=== PATIENT | female | born 1985 | race Caucasian/White ===

== ENCOUNTER → 2019-11-10 11:43 | Outpatient (CLI) | payer OTHER, SELFPAY ==
[2019-11-10 12:37] LABS: Add Manual Diff / Slide Review NO; Basophils Absolute Auto 0 /uL (0-100); Basophils Percent Auto 0.5 % (0-2); Eosinophils Absolute Auto 0 /uL (0-450); Eosinophils Percent Auto 0.3 % (2-4); Hematocrit 38.4 % (36-46); Hemoglobin 13.3 g/dL (12.0-16.0); Lymphocytes Absolute Auto 2800 /uL (1100-4500); Lymphocytes Percent Auto 36.2 % (25-40); Mean Corpuscular HGB Conc 34.6 % (30-36); Mean Corpuscular Hemoglobin 31.1 PG (26-34); Monocytes Absolute Auto 500 /uL (0-900); Monocytes Percent Auto 6.6 % (3-14); Neutrophils Absolute Auto 4400 /uL (1500-7000); Neutrophils Percent Auto 56.4 % (50-75); Platelet Count 313 X10^3/uL (150-400); Red Blood Cell Count 4.27 X10^6/uL (4.0-5.2); Red Cell Distribution Width 12.5 % (11.6-14.8); White Blood Cell Count 7.7 X10^3/uL (4.5-11.0)
[2019-11-10 13:30] LABS: Alanine Aminotransferase 18 IU/L (<35); Albumin 4.7 g/dL (3.5-5.0); Albumin Globulin Ratio 1.6 (1.0-2.8); Alkaline Phosphatase 41 U/L (38-126); Aspartate Aminotransferase 27 IU/L (14-36); BUN Creatinine Ratio 14.5 (6-22); Bilirubin Total 0.6 mg/dL (0.2-1.3); Blood Urea Nitrogen 12 mg/dL (7-17); Carbon Dioxide 25 mmol/L (22-32); Chloride 105 mmol/L (98-107); Estimated Glomerular Filt Rate > 60.0 mL/min (>60); Glucose 92 mg/dL (70-100); HEMOLYSIS < 15 (0-50); Potassium 4.2 mmol/L (3.4-5.1); Sodium 138 mmol/L (137-145); Total Protein 7.7 g/dL (6.3-8.2)
[2019-11-10 13:54] LABS: TSH w/ Reflex to FT4 1.62 uIU/mL (0.47-4.68)
== END ==
DX: R53.83 Other fatigue (principal)
CPT/HCPCS: 36415; 80053; 84443; 85025

== ENCOUNTER → 2021-03-28 12:07 | Outpatient (CLI) | payer OTHER, SELFPAY ==
[2021-03-28 12:41] LABS: RBC Urine None Seen (0-5/HPF)
[2021-03-28 12:56] LABS: Appearance Urine UA CLEAR; Bilirubin Urine UA NEGATIVE (NEGATIVE); Color Urine UA YELLOW; Glucose Urine UA NEGATIVE (Negative); Ketones Urine UA NEGATIVE (NEGATIVE); Leukocyte Esterase Urine UA 1+ (NEGATIVE); Nitrite Urine UA NEGATIVE (Negative); Occult Blood Urine UA NEGATIVE (Negative); Protein Urine UA NEGATIVE (Negative); Urobilinogen Urine UA 0.2 E.U./dL (0.2)
[2021-03-28 13:11] LABS: Bacteria Urine Occasional (0-1); Culture Indicated Urine Specimen Cultured; Squamous Epithelial Cell Urine 1-5 /HPF (0-5/HPF); WBC Urine 0-1/HPF (0-5/HPF)
== END ==
PROVIDERS: Visit Provider Physician Assistant
DX: R30.9 Painful micturition, unspecified (principal)
CPT/HCPCS: 81001; 87086

== ENCOUNTER → 2021-05-16 15:45 | Outpatient (CLI) | payer OTHER, SELFPAY ==
[2021-05-16 16:12] LABS: Add Manual Diff / Slide Review NO; Basophils Absolute Auto 0 /uL (0-100); Basophils Percent Auto 0.4 % (0-2); Eosinophils Absolute Auto 0 /uL (0-450); Eosinophils Percent Auto 0.3 % (2-4); Hematocrit 37.1 % (36-46); Hemoglobin 13.1 g/dL (12.0-16.0); Lymphocytes Absolute Auto 1500 /uL (1100-4500); Lymphocytes Percent Auto 21.4 % (25-40); Mean Corpuscular HGB Conc 35.4 % (30-36); Mean Corpuscular Hemoglobin 31.7 PG (26-34); Mean Corpuscular Volume 89.3 fL (80-100); Monocytes Absolute Auto 400 /uL (0-900); Monocytes Percent Auto 6.1 % (3-14); Neutrophils Absolute Auto 5100 /uL (1500-7000); Neutrophils Percent Auto 71.8 % (50-75); Platelet Count 261 X10^3/uL (150-400); Red Blood Cell Count 4.15 X10^6/uL (4.0-5.2); Red Cell Distribution Width 12.7 % (11.6-14.8); White Blood Cell Count 7.1 X10^3/uL (4.5-11.0)
[2021-05-16 16:17] LABS: Appearance Urine UA CLEAR; Bilirubin Urine UA NEGATIVE (NEGATIVE); Color Urine UA YELLOW; Glucose Urine UA NEGATIVE (Negative); Ketones Urine UA NEGATIVE (NEGATIVE); Leukocyte Esterase Urine UA NEGATIVE (NEGATIVE); Nitrite Urine UA NEGATIVE (Negative); Occult Blood Urine UA NEGATIVE (Negative); Protein Urine UA NEGATIVE (Negative); Specific Gravity Urine UA 1.015 (1.000-1.035); Urobilinogen Urine UA 0.2 E.U./dL (0.2)
[2021-05-16 16:22] LABS: pH Urine UA 6.5 (4.5-8.0)
[2021-05-16 16:40] LABS: Alanine Aminotransferase 34 IU/L (<35); Albumin 4.5 g/dL (3.5-5.0); Albumin Globulin Ratio 1.7 (1.0-2.8); Alkaline Phosphatase 50 U/L (38-126); Aspartate Aminotransferase 37 IU/L (14-36); BUN Creatinine Ratio 19.4 (6-22); Bilirubin Total 0.4 mg/dL (0.2-1.3); Blood Urea Nitrogen 19 mg/dL (7-17); Calcium 9.5 mg/dL (8.4-10.2); Carbon Dioxide 31 mmol/L (22-32); Chloride 103 mmol/L (98-107); Estimated Glomerular Filt Rate > 60.0 mL/min (>60); Globulin 2.6 g/dL (1.7-4.1); Glucose 100 mg/dL (70-100); HEMOLYSIS < 15 (0-50); Sodium 139 mmol/L (137-145); Total Protein 7.1 g/dL (6.3-8.2)
== END ==
PROVIDERS: PCP Registered Nurse; Referring Provider Registered Nurse; Visit Provider Registered Nurse
DX: R35.0 Frequency of micturition (principal)
CPT/HCPCS: 36415; 80053; 81003; 85025

== ENCOUNTER → 2021-06-19 09:11 | Outpatient (CLI) | payer OTHER, SELFPAY ==
--- NOTE | 2021-06-19 09:11 | DI.US.S_ITS ---
PROCEDURE: US PELVIC COMPLETE INDICATIONS: PELVIC PAIN. EVALUATE FOR PELVIC VARICOSITIES. TECHNIQUE: Real-time scanning was performed of the pelvic organs, with image documentation. Additional endovaginal scanning was necessary due to incomplete visualization of the adnexal and endometrial structures by transabdominal scanning. COMPARISON: None. FINDINGS: Uterus: Uterus is normal in size at 7.2 x 4.2 x 3.3 cm. The endometrium measures 5.7 mm in combined thickness. Ovaries: The right ovary measures 4.2 x 2.7 x 2 cm. The left ovary measures 3.8 x 2.5 x 1.6 cm. Other: No pathologic free abdominal or pelvic fluid. The right adnexal veins measures up to 5.7 mm with Valsalva. The left adnexal vein measures up to 6.5 mm with Valsalva. IMPRESSION: No significant abnormality. Dictated by: Sean Perez M.D. on 06/19/2021 at 10:47 Approved by: Sean Perez M.D. on 06/19/2021 at 10:55
== END ==
PROVIDERS: PCP Registered Nurse; Referring Provider Obstetrics & Gynecology; Visit Provider Obstetrics & Gynecology
DX: R10.2 Pelvic and perineal pain (principal)
CPT/HCPCS: 76830; 76856

== ENCOUNTER → 2021-10-23 12:04 | Outpatient (CLI) | payer OTHER, SELFPAY ==
--- NOTE | 2021-10-23 12:10 | DI.RAD.S_ITS ---
PROCEDURE: XR PELVIS 1-2V INDICATIONS: Strain of muscle, fascia and tendon of lower back TECHNIQUE: 1 view(s) of the pelvis acquired. COMPARISON: None. FINDINGS: Bones: No fractures or dislocations. No suspicious bony lesions. Soft tissues: Visualized bowel gas pattern is normal. No suspicious soft tissue calcifications. IMPRESSION: No fracture. No osseous lesion. If symptoms and/or clinical suspicion for pathology persists, further assessment with advanced imaging (e.g. CT, MRI or bone scan) should be considered. Dictated by: Pili Gallo MD, PhD on 10/23/2021 at 15:53 Approved by: Pili Gallo MD, PhD on 10/23/2021 at 15:53
--- NOTE | 2021-10-23 12:10 | DI.RAD.S_ITS ---
PROCEDURE: XR LUMBAR SPINE 2-3V INDICATIONS: Strain of muscle, fascia and tendon of lower back TECHNIQUE: 2 views of the lumbar spine were acquired. COMPARISON: None. FINDINGS: Bones: 5 aqo-wak-orcmapb vertebrae are present. There is normal bony alignment. No vertebral body compression fractures. No suspicious bony lesions. Soft tissues: Overlying bowel gas pattern is normal. No suspicious soft tissue calcifications. IMPRESSION: No acute compression fracture or spondylolisthesis in lumbar spine. Dictated by: Alphonso Zayas M.D. on 10/23/2021 at 14:13 Approved by: Alphonso Zayas M.D. on 10/23/2021 at 14:14
== END ==
PROVIDERS: PCP Registered Nurse; Referring Provider Emergency Medicine; Visit Provider Emergency Medicine
DX: S39.012A Strain of muscle, fascia and tendon of lower back, initial encounter (principal); W18.30XA Fall on same level, unspecified, initial encounter
CPT/HCPCS: 72100; 72170

== ENCOUNTER 2021-10-26 17:11 | Emergency (ER) | payer OTHER, SELFPAY ==
[2021-10-26 17:13] VITALS: BP 112/73; PULSE 80; RESP 14; TEMP 36.7; O2SAT 100; BMI 20.5
--- NOTE | 2021-10-26 19:32 | ED.BACK ---
HPI - Back Pain/Injury <Katie Kuo, [facility] - Last Filed: 10/26/21 19:45> General Chief Complaint: Back Pain/Injury Stated Complaint: back pain, slipped 2 weeks ago Time Seen by Provider: 10/26/21 17:55 Source: patient History of Present Illness HPI Narrative: 36-year-old female presents to the emergency department with worsening low back pain after a fall that happened 2 weeks ago. She states that she slipped and fell straight down landing on her buttocks and then had bilateral low back pain afterwards with sciatica symptoms. She states that this is been getting worse over last few days despite taking Flexeril, Motrin, and using heat packs at home. Patient was seen by her primary care provider, x-rays were obtained on 10/23/2021 of her lumbar spine and pelvis without any acute compression fractures or spondylolisthesis in her lumbar spine, no acute fracture. Patient states that today she had bilateral sciatica which seemed worse in nature than her symptoms before today. Patient denies any weakness in her lower extremities, denies any incontinence, urinary retention, dysuria, persistent numbness or tingling. She states that she has a hot poker sensation over her mid right buttock which shoots down her leg, she endorses that her sciatica shoots down her left leg as well but the hot poker is on her right buttock. She denies any trauma since this injury, denies any difficulty ambulating, states that she has been resting at home and when she bent down to pick something up it read flared her pain today and she has been unable to function at home since this happened. Related Data Previous Rx's Medication Instructions Recorded L norgest/E estradiol-E estrad 1 tab PO DAILY #91 tab 08/29/20 0.15 mg-30 mcg (84)/10 mcg(7) tabs,3mos (Ashlyna) drospirenone 3 mg-ethinyl 1 tab PO DAILY #84 tab 05/17/21 estradiol 0.02 mg tablet (ABEBA (28)) ketorolac 10 mg tablet 10 mg PO Q8H PRN #20 tab 10/26/21 lidocaine 5 % topical patch 1 patch TOPICAL DAILY PRN #30 ea 10/26/21 methocarbamol 500 mg tablet 500 mg PO TID PRN #20 tab 10/26/21 methylprednisolone 4 mg tablets in 4 mg PO DAILY #21 ea 10/26/21 a dose pack (Medrol (Stef)) Allergies Allergy/AdvReac Type Severity Reaction Status Date / Time pseudoephedrine Allergy Unknown Verified 10/26/21 17:15 [PSEUDOEPHEDRINE] duratuss Allergy Unknown Hives Uncoded 05/27/21 16:32 Review of Systems <CAROLINE Olivarez - Last Filed: 10/26/21 19:45> Review of Systems Narrative: General: denies fever, chills, malaise, sweats, fatigue Head/Neck: denies headache, neck pain, dizziness Eyes: denies visual changes, eye pain Cardio: denies chest pain, palpitations, edema Respiratory: denies dyspnea, cough, orthopnea GI: denies abdominal pain, nausea, vomiting, or diarrhea : denies dysuria, hematuria, urinary retention, frequency or incontinence MSK: Endorses low back pain with sciatica, denies any muscle weakness Skin: denies rash, itching, skin lesions or other Neuro: denies numbness, tingling Patient History <CAROLINE Olivarez - Last Filed: 10/26/21 19:45> Medical History Abnormal Pap smear of cervix (~2014) Asthma Bronchitis Feeling of incomplete bladder emptying GERD (gastroesophageal reflux disease) Leg laceration Painful menstrual periods (~2018) Pelvic pain PMDD (premenstrual dysphoric disorder) Primary dysmenorrhea Urinary frequency Vaginal delivery Family History Father Kidney disease Social History Smoking Status: Never smoker Smoking Status: Never smoker alcohol intake frequency: holidays/special occasions only Substance Use Type: does not use Exam <CAROLINE Olivarez - Last Filed: 10/26/21 19:45> Narrative Exam Narrative: Independently reviewed vitals signs and nursing notes. General: Cooperative, comfortable, in no acute distress, well developed and well groomed Head/Neck: Normal visual inspection and supple, atraumatic, no JVD or lymphadenopathy. Normal facial exam Eyes: Pupils equal round and reactive, EOMI, conjunctiva normal, no scleral icterus or injections Nose: External nose normal, nares patent, no rhinorrhea, without purulent drainage Mouth/Throat: uvula midline, moist mucus membranes Cardio: Regular rate and rhythm, no peripheral edema, warm extremities Respiratory: Normal respiratory effort, able to speak in complete sentences without audible wheezing, stridor, or rales. No retractions. GI: Abdomen soft, nontender to palpation x4 quadrants, nondistended, no masses or exquisite tenderness with exam, no flank tenderness MSK: Moves all extremities, neurovascularly intact, no step-offs, crepitus, or palpable deformity to her spine, no tenderness along her lumbar spine or sacrum, patient's greatest pain is lateral to her lumbosacral spine, primarily on the right but also on the left. Skin: Normal capillary refill, no rash Neuro: Normal speech and cognition, normal gait, A&O x3, tone normal, moves all extremities Psych: Mental status is grossly normal, speech is clear, congruent mood, normal affect Initial Vital Signs Initial Vital Signs: Vital Signs Temperature 98.0 F 10/26/21 17:13 Pulse Rate 80 10/26/21 17:13 Respiratory Rate 14 10/26/21 17:13 Blood Pressure 112/73 10/26/21 17:13 Pulse Oximetry 100 10/26/21 17:13 <Ale Romero DO - Last Filed: 10/31/21 07:50> Initial Vital Signs Initial Vital Signs: Vital Signs Temperature 98.0 F 10/26/21 17:13 Pulse Rate 80 10/26/21 17:13 Respiratory Rate 14 10/26/21 17:13 Blood Pressure 112/73 10/26/21 17:13 Pulse Oximetry 100 10/26/21 17:13 Course <CAROLINE Olivarez - Last Filed: 10/26/21 19:45> Orders Ordered: Discontinued Medications Ketorolac Tromethamine (Ketorolac 10 Mg Tablet) 10 mg PO NOW ONE Stop: 10/26/21 19:23 Last Admin: 10/26/21 19:38 Dose: 10 mg Documented by: BENNIE Lidocaine (Lidocaine Patch 1 Each Adh..Patch) 1 each TOP NOW ONE Stop: 10/26/21 19:23 Last Admin: 10/26/21 19:38 Dose: 1 each Documented by: BENNIE Vital Signs Vital signs: Vital Signs - 8 hr 10/26/21 17:13 Temperature 98.0 F Pulse Rate 80 Respiratory Rate 14 Blood Pressure 112/73 Pulse Oximetry 100 <Ale Romero DO - Last Filed: 10/31/21 07:50> Orders Ordered: Discontinued Medications Ketorolac Tromethamine (Ketorolac 10 Mg Tablet) 10 mg PO NOW ONE Stop: 10/26/21 19:23 Last Admin: 10/26/21 19:38 Dose: 10 mg Documented by: BENNIE Lidocaine (Lidocaine Patch 1 Each Adh..Patch) 1 each TOP NOW ONE Stop: 10/26/21 19:23 Last Admin: 10/26/21 19:38 Dose: 1 each Documented by: BENNIE Vital Signs Vital signs: Vital Signs - 8 hr 10/26/21 17:13 Temperature 98.0 F Pulse Rate 80 Respiratory Rate 14 Blood Pressure 112/73 Pulse Oximetry 100 [facility] [place] - Back Pain/Injury <CAROLINE Olivarez - Last Filed: 10/26/21 19:45> Imaging Data Lumbar XR: Radiologist's Impression: PROCEDURE:? XR LUMBAR SPINE 2-3V ? INDICATIONS:? Strain of muscle, fascia and tendon of lower back ? TECHNIQUE:? 2 views of the lumbar spine were acquired.? ? COMPARISON:? None. ? FINDINGS:? ? Bones:? 5 ipe-upz-nwkeyiq vertebrae are present.? There is normal bony alignment.? No vertebral body compression fractures.? No suspicious bony lesions.? ? Soft tissues:? Overlying bowel gas pattern is normal.? No suspicious soft tissue calcifications.? ? ? IMPRESSION:? No acute compression fracture or spondylolisthesis in lumbar spine. ? ? Dictated by: Alphonso Zayas M.D. on 10/23/2021 at 14:13 ? ? Approved by: Alphonso Zayas M.D. on 10/23/2021 at 14:14 ? [facility] [place] Narrative Medical decision making narrative: 36-year-old female presents the emergency department for low back plain exacerbation with bilateral sciatica from fall which happened 2 weeks ago. 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 Patient denies any new trauma, denies any weakness in her lower extremities, denies any incontinence or urinary retention. She has not had any fever, her pain is primarily over her right buttock but also on her left side. Patient does not have any midline lumbar spine pain, she endorses muscle spasms bilaterally. Imaging was obtained on 10/23/2021 without any acute compression fractures, spondylolisthesis, or acute osseous abnormality. Patient was encouraged to follow-up with her primary care provider for advanced imaging and physical therapy. Patient was referred to physical therapy here in [place] at 2 different locations, she was given a Medrol Dosepak, prescription for methocarbamol, lidocaine patches, and Toradol p.o.. Patient was given strict return precautions, encouraged to follow-up closely with her provider, and return to the emergency department for any worsening of her symptoms. Multiple etiologies of back pain considered including; Epidural abscess, cauda equina, mass occupying lesion, lumbar fracture, intra-abdominal pathology chronic neuropathic pain and other considered. Patient is appropriate and amenable to discharge home. Vital signs are stable on repeat examination is unremarkable. Patient has been informed of results. Patient has been given strict return to ER precautions for any new or worsening symptoms. Patient understands to follow up closely with outpatient providers as instructed. Patient understands plan and agrees to discharge home. All questions and concerns answered at this time. Discharge Plan Departure Patient Disposition: Home Clinical Impression: Low back pain radiating to both legs Instructions: DI for Back Pain With Sciatica, DI for Back Spasm Activity Restrictions/Additional Instructions: *You have been diagnosed with low back pain with sciatica, have sent over and anti-inflammatories call [facility] to [facility], you take this every 8 hours instead of ibuprofen for pain with food and water, using lidocaine patch morning and night over where this pain originates from, use Robaxin muscle relaxers every 8 hours as needed for back spasms, and start taking the Medrol Dosepak tonight to help with the inflammation. Please continue doing hot packs, try to get up and walk around a few times a day to help keep your body from getting too stiff. I have attached to in a [facility] locations for physical therapy, you may call in get an appointment for an evaluation. And please follow-up with Patrick Miguel for advanced imaging and a referral for physical therapy if you need that. See if my referral will work, and try to get in as soon as he can. Continue resting, light massage is okay, if you develop any weakness of your lower extremities, incontinence, or any major change, please return to the emergency department for another evaluation. Thank you for trusting us with your care, I hope you feel better soon. *What to do: *Please continue to take your regular medications as directed. [ x] New medication prescriptions sent to your pharmacy: [[facility] ] [ ] New medication written as a paper prescription [ ] No new medications given *Please follow up with your primary care provider in 2-3 days, call for an appointment. Let them know you were seen in the Emergency Department and that we ask that you be seen in follow up. We will electronically transmit a record of today's note if your PCP is in our system *If you do not have a primary care provider please contact the [facility] Resource line at [phone]. They will ask some questions about your medical history and help get you set up with a doctor in the community. *Return to Emergency Department if you should have any new, worsening or concerning symptoms, such as [fever greater than 101F, chills, worsening pain, persistent vomiting or other bothersome symptoms] Prescriptions: New methylprednisolone [Medrol (Stef)] 4 mg tablets,dose pack 4 mg PO DAILY Qty: 21 0RF ketorolac 10 mg tablet 10 mg PO Q8H PRN (Reason: pain) Qty: 20 0RF Rx Instructions: Please take with food and water methocarbamol 500 mg tablet 500 mg PO TID PRN (Reason: back pain) Qty: 20 0RF lidocaine 5 % adhesive patch,medicated 1 patch topical DAILY PRN (Reason: back pain) Qty: 30 0RF Rx Instructions: leave on most painful area for up to 12 hrs No Action L norgest/e.estradiol-e.estrad [Ashlyna] 0.15 mg-30 mcg (84)/10 mcg (7) tablets,dose pack,3 month 1 tab PO DAILY Qty: 91 3RF Rx Instructions: Take once daily at same time every day drospirenone-ethinyl estradiol [ABEBA (28)] 3-0.02 mg tablet 1 tab PO DAILY Qty: 84 4RF Rx Instructions: Take one active pill daily x 21 days then start a new pack. Referrals: [facility] [Provider Group] [facility] [Provider Group] Patrick Elizalde ARNP [Primary Care Provider] - <Ale Romero DO - Last Filed: 10/31/21 07:50> Cosign ED Attending Parish Attestation: I was immediately available in the department for consultation. Documentation has been reviewed. I agree with assessment and plan.
[2021-10-26] MEDS: KETOROLAC 10 MG TABLET PO (19:38)
[2021-10-26] MEDS: LIDOCAINE PATCH 1 EACH ADH..PATCH TOP (19:38)
== END 2021-10-26 19:42 | disposition home or self-care (01) ==
PROVIDERS: Emergency Provider Nurse Practitioner Critical Care Medicine; PCP Registered Nurse
DX: M54.42 Lumbago with sciatica, left side (principal); M54.41 Lumbago with sciatica, right side
CPT/HCPCS: 99282; 99283

== ENCOUNTER → 2022-02-24 12:34 | Outpatient (CLI) | payer OTHER, SELFPAY ==
--- NOTE | 2022-02-24 12:37 | DI.MRI.S_ITS ---
PROCEDURE: MR LUMBAR SPINE WO CON INDICATIONS: Low back pain, unspecified TECHNIQUE: Noncontrast sagittal T1 spin echo and T2 fast echo, sagittal STIR, and T2 fast spin echo through the lumbar spine. In cases with scoliosis, additional coronal T2 fast spin echo may be performed. COMPARISON: [facility], CR, XR LUMBAR SPINE 2-3V, 10/23/2021, 12:03. FINDINGS: Image quality: Excellent. Alignment and Curvature: There is normal bony alignment. Bone Marrow: Modic type 2 reactive endplate changes noted adjacent to the L5-S1 disc. No acute vertebral body compression fractures. Spinal Cord: Conus medullaris terminates at the L1-L2 disc level. Visualized cord demonstrates normal signal and size. Paraspinous Soft Tissues: No paravertebral masses. T12-L1: Normal appearance. L1-L2: Normal appearance. L2-L3: Normal appearance. L3-L4: Normal appearance. L4-L5: Loss of disc signal. Mild, diffuse disc bulge. Small central disc protrusion. No central stenosis. Mild bilateral neural foraminal narrowing. No neural compression. L5-S1: Loss of disc signal. Mild, diffuse disc bulge. Small right central disc protrusion. No central stenosis. Mild left neural foraminal narrowing. No neural compression. IMPRESSION: 1. Multilevel degenerative disc disease. 2. No central stenosis. 3. No severe neural foraminal narrowing. 4. No neural compression. Dictated by: Pili Gallo MD, PhD on 02/27/2022 at 11:56 Approved by: Pili Gallo MD, PhD on 02/27/2022 at 11:59
== END ==
PROVIDERS: PCP Registered Nurse
DX: R20.2 Paresthesia of skin (principal); M54.50 Low back pain, unspecified; M51.36 Other intervertebral disc degeneration, lumbar region
CPT/HCPCS: 72148

== ENCOUNTER → 2022-11-27 13:43 | Outpatient (CLI) | payer OTHER, SELFPAY ==
--- NOTE | 2022-11-27 | DI.MRI.S_ITS ---
PROCEDURE: MR LUMBAR SPINE WO CON INDICATIONS: Radiculopathy, lumbar region TECHNIQUE: Noncontrast sagittal T1 spin echo and T2 fast echo, sagittal STIR, and T2 fast spin echo through the lumbar spine. In cases with scoliosis, additional coronal T2 fast spin echo may be performed. COMPARISON: Located [facility], MR, MR LUMBAR SPINE WO CON, 02/24/2022, 12:43. FINDINGS: Image quality: Excellent. Alignment and Curvature: There is normal bony alignment. Bone Marrow: Marrow is of normal overall signal. No acute vertebral body compression fractures. Spinal Cord: Conus medullaris terminates at the L1-L2 level. Visualized cord demonstrates normal signal and size. Paraspinous Soft Tissues: No paravertebral masses. T12-L1: Normal appearance. L1-L2: Normal appearance. L2-L3: Normal appearance. L3-L4: Normal appearance. L4-L5: Annulus tear plus disc bulge, as before. No canal stenosis or foraminal stenosis. L5-S1: Significant interval progression. Previously, there was a small left paracentral disc protrusion. There is now a large left paracentral disc extrusion with increased signal indicating a degree of acuity. A portion of the extruded disc material has extended superiorly behind the left side of the L5 vertebral body. There is impingement on the left L5 nerve root above the foramen and impingement on the left S1 nerve root in the left lateral recess. There is ebzn-wv-gojfeaqz central canal narrowing. The disc extrusion measures approximately 1.8 x 1.7 x 1.1 cm. IMPRESSION: 1. Relatively recent development of a large left paracentral disc extrusion at L5-S1. This impinges the left L5 nerve root above the foramen and impinges the left S1 nerve root in the left lateral recess. There is [id number] central canal stenosis. Dictated by: Shakir Lagos M.D. on 11/27/2022 at 15:29 Approved by: Shakir Lagos M.D. on 11/27/2022 at 15:34
== END ==
PROVIDERS: Referring Provider Neurological Surgery; Visit Provider Neurological Surgery
DX: M51.16 Intervertebral disc disorders with radiculopathy, lumbar region (principal); M51.17 Intervertebral disc disorders with radiculopathy, lumbosacral region; M48.061 Spinal stenosis, lumbar region without neurogenic claudication
CPT/HCPCS: 72148

== ENCOUNTER → 2023-02-21 15:25 | Outpatient (CLI) | payer OTHER, SELFPAY ==
--- NOTE | 2023-02-21 | DI.MRI.S_ITS ---
PROCEDURE: MR LUMBAR SPINE WO/W CON INDICATIONS: Radiculopathy, lumbar region TECHNIQUE: Noncontrast sagittal T1 spin echo and T2 fast spin echo, sagittal STIR, axial T1 and T2 fast spin echo through the lumbar spine. In cases with scoliosis, additional coronal T2 fast spin echo may be performed. After the administration of contrast, sagittal and axial T1 spin echo with fat saturation through the lumbar spine. COMPARISON: [facility], , MR LUMBAR SPINE WO CON, 11/27/2022, 13:49. FINDINGS: Image quality: Excellent. Alignment and curvature: There is normal bony alignment. Marrow: Marrow is of normal overall signal. No acute vertebral body compression fractures. No suspicious marrow enhancement. Spinal cord: Conus medullaris terminates at the L1 level. Visualized spinal cord demonstrates normal signal, without suspicious enhancement. Paraspinous soft tissues: No paravertebral masses or abnormal enhancement. T12-L1: No significant disc bulge. The foramina and central canal are patent. L1-L2: No significant disc bulge. The foramina and central canal are patent. L2-L3: No significant disc bulge. The foramina and central canal are patent. L3-L4: No significant disc bulge. The foramina and central canal are patent. L4-L5: The disc is desiccated. There is a mild diffuse disc bulge with an annular tear. Mild bilateral foraminal stenosis. The central canal is patent. L5-S1: The disc is desiccated with disc space narrowing. There is a diffuse disc bulge with disc osteophytes. Left foraminotomy. Interval resection of a left paracentral disc extrusion has occurred with significant improvement. Cephalad to the disc level in a paracentral location there is a focus of signal with post gadolinium enhancement. The facets are mildly hypertrophic. IMPRESSION: 1. Degenerative disc disease at L4-5 with a small annular tear and mild bilateral foraminal stenosis. 2. Degenerative disc disease at L5-S1 interval resection of a left paracentral disc extrusion which is significantly improved. There is a small amount of residual signal cephalad to the disc level on the left with enhancement which extends into the left S1 nerve root consistent with epidural fibrosis. 3. No central canal stenosis. Dictated by: Edwin Emanuel M.D. on 02/21/2023 at 16:15 Approved by: Edwin Emanuel M.D. on 02/21/2023 at 16:27
== END ==
PROVIDERS: PCP Family Medicine; Referring Provider Neurological Surgery; Visit Provider Neurological Surgery
DX: M51.16 Intervertebral disc disorders with radiculopathy, lumbar region (principal); M51.17 Intervertebral disc disorders with radiculopathy, lumbosacral region; M48.061 Spinal stenosis, lumbar region without neurogenic claudication
CPT/HCPCS: 72158; A9579

== ENCOUNTER → 2023-06-13 08:18 | Outpatient (CLI) | payer OTHER, SELFPAY ==
--- NOTE | 2023-06-13 | DI.MRI.S_ITS ---
PROCEDURE: MR LUMBAR SPINE WO CON INDICATIONS: Radiculopathy, lumbar region TECHNIQUE: Noncontrast sagittal T1 spin echo and T2 fast echo, sagittal STIR, and T2 fast spin echo through the lumbar spine. In cases with scoliosis, additional coronal T2 fast spin echo may be performed. COMPARISON: [facility], , MR LUMBAR SPINE WO CON, 11/27/2022, 13:49. FINDINGS: Image quality: Motion degraded. Alignment and Curvature: Mild straightening of the normal lumbar lordosis. Bone Marrow: Degenerative endplate changes at L5-S1. Marrow is of normal overall signal. No acute vertebral body compression fractures. Spinal Cord: Conus medullaris terminates at the L1-L2 level. Visualized cord demonstrates normal signal and size. Paraspinous Soft Tissues: No paravertebral masses. T12-L1: Normal appearance. L1-L2: Normal appearance. L2-L3: Normal appearance. L3-L4: Normal appearance. L4-L5: Disc desiccation. Small annular tear. Minimal disc bulge. No central canal or neural foraminal stenosis. L5-S1: Postsurgical changes from right hemilaminectomy and microdiscectomy. Significant improvement in disc extrusion, now with minimal residual central disc bulge. Facet arthropathy. No central canal stenosis. Mild bilateral neural foraminal stenosis. IMPRESSION: 1. Significant improvement in L5-S1 disc extrusion with minimal residual central disc protrusion. No nerve root impingement. 2. Mild degenerative changes of the lower lumbar spine. Mild bilateral neural foraminal stenosis at L5-S1. Dictated by: Marco Antonio Montalvo M.D. on 06/13/2023 at 10:36 Approved by: Marco Antonio Montalvo M.D. on 06/13/2023 at 10:42
== END ==
PROVIDERS: PCP Family Medicine; Referring Provider Physician Assistant Medical; Visit Provider Physician Assistant Medical
DX: M54.16 Radiculopathy, lumbar region (principal); M51.27 Other intervertebral disc displacement, lumbosacral region; M48.07 Spinal stenosis, lumbosacral region
CPT/HCPCS: 72148

== ENCOUNTER 2023-06-20 15:44 | Emergency (ER) | payer OTHER, SELFPAY ==
[2023-06-20 15:58] VITALS: BP 117/78; PULSE 80; RESP 20; TEMP 36.9; O2SAT 98; BMI 20.5
--- NOTE | 2023-06-20 17:11 | PC.NURSE ---
mother got report that that bat was tested negative for rabies; provider aware, provider verbal order to cancel. pharmacy notified.
--- NOTE | 2023-06-20 17:14 | PC.NURSE ---
see provider note for detailed assessment
--- NOTE | 2023-06-20 17:27 | ED.ANIMALBIT ---
HPI - Animal Bite <Piotr Duke PA-C - Last Filed: 06/20/23 17:43> General Chief Complaint: Animal Bite Stated Complaint: states needs Rabies shot Time Seen by Provider: 06/20/23 16:03 Source: patient Mode of arrival: Ambulatory History of Present Illness HPI narrative: 38-year-old female with no reported past medical history presents to the ED with her 2 children for rabies PEP due to possible bat exposure. Patient states that she was with her and 2 children in their cabin, when a bat flew by brushing her 's hand. While there was no known bite incurred by her or her children, it is unclear if the bat was in the room when they were sleeping. The bat was captured by her and sent for testing. Department of Health has not reported the results back to the patient, it has been 5 days since exposure, therefore she is in the ED for rabies peep. Patient denies any symptoms since the exposure. Related Data Previous Rx's Medication Instructions Recorded L norgest/E estradiol-E estrad 1 tab PO DAILY Contraception #91 08/29/20 0.15 mg-30 mcg (84)/10 mcg(7) tabs tabs,3mos (Ashlyna) ketorolac 10 mg tablet 10 mg PO Q8H PRN pain #20 tabs 10/26/21 lidocaine 5 % topical patch 1 patch topical DAILY PRN back 10/26/21 pain #30 ea methocarbamol 500 mg tablet 500 mg PO TID PRN back pain #20 10/26/21 tabs methylprednisolone 4 mg tablets in 4 mg PO DAILY back pain 10/26/21 a dose pack (Medrol (Stef)) exacerbation #21 ea drospirenone 3 mg-ethinyl See Rx Instructions .Route 04/18/22 estradiol 0.02 mg tablet .COMPLEX #112 tabs Allergies Allergy/AdvReac Type Severity Reaction Status Date / Time pseudoephedrine Allergy Unknown Verified 06/20/23 16:03 [PSEUDOEPHEDRINE] duratuss Allergy Unknown Hives Uncoded 06/20/23 16:03 Review of Systems <Piotr Duke PA-C - Last Filed: 06/20/23 17:43> Review of Systems ROS Unobtainable: All systems reviewed & are unremarkable except as noted in HPI and below Patient History <Piotr Duke PA-C - Last Filed: 06/20/23 17:43> Medical History Leg laceration Bronchitis Asthma Painful menstrual periods (~2018) Abnormal Pap smear of cervix (~2014) GERD (gastroesophageal reflux disease) Feeling of incomplete bladder emptying PMDD (premenstrual dysphoric disorder) Pelvic pain Urinary frequency Vaginal delivery Primary dysmenorrhea Family History Father Kidney disease Social History Smoking Status: Never smoker Smoking Status: Never smoker alcohol intake frequency: holidays/special occasions only Substance Use Type: does not use Exam <Piotr Duke PA-C - Last Filed: 06/20/23 17:43> Narrative Exam Narrative: Const General:?cooperative, healthy appearing and comfortable HENMA Head:?normal to inspection Ears:?hearing grossly normal bilaterally Nose:?external nose normal Face and sinus:?normal facial exam and sinuses nontender Mouth:?oral mucosae normal Throat:?posterior oropharynx normal Eyes General:?appearance normal, both eyes and all related structures Neck Neck:?normal visual inspection and no lymphadenopathy noted Resp Effort & Inspection:?normal respiratory effort Auscultation:?clear to auscultation bilaterally Cardio Rate:?regular rate Rhythm:?regular rhythm Neuro General:?patient alert, patient awake and patient oriented x3 Initial Vital Signs Initial Vital Signs: Vital Signs Temperature 98.4 F 06/20/23 15:58 Pulse Rate 80 06/20/23 15:58 Respiratory Rate 20 06/20/23 15:58 Blood Pressure 117/78 06/20/23 15:58 Pulse Oximetry 98 06/20/23 15:58 Oxygen Delivery Method Room Air 06/20/23 15:58 <Ale Romero DO - Last Filed: 06/24/23 00:54> Initial Vital Signs Initial Vital Signs: Vital Signs Temperature 98.4 F 06/20/23 15:58 Pulse Rate 80 06/20/23 15:58 Respiratory Rate 20 06/20/23 15:58 Blood Pressure 117/78 06/20/23 15:58 Pulse Oximetry 98 06/20/23 15:58 Oxygen Delivery Method Room Air 06/20/23 15:58 Course <Piotr Duke PA-C - Last Filed: 06/20/23 17:43> Orders Ordered: Discontinued Medications Rabies Immune Globulin (Rabies Immune Globulin 300 Unit/Ml 1ml Vial) 1,089 unit 20 unit/kg (1089 unit) IM NOW ONE Stop: 06/20/23 16:48 Last Admin: 06/20/23 17:10 Dose: Not Given Documented By: KF Rabies Vaccine (Rabies Vaccine (Rabavert) 2.5 Units Syringe) 2.5 units IM .ONCE ONE Stop: 06/20/23 16:48 Last Admin: 06/20/23 17:10 Dose: Not Given Documented By: KF Vital Signs Vital signs: Vital Signs - 8 hr 06/20/23 15:58 Temperature 98.4 F Pulse Rate 80 Respiratory Rate 20 Blood Pressure 117/78 Pulse Oximetry 98 Oxygen Delivery Method Room Air <Ale Romero DO - Last Filed: 06/24/23 00:54> Orders Ordered: Discontinued Medications Rabies Immune Globulin (Rabies Immune Globulin 300 Unit/Ml 1ml Vial) 1,089 unit 20 unit/kg (1089 unit) IM NOW ONE Stop: 06/20/23 16:48 Last Admin: 06/20/23 17:10 Dose: Not Given Documented By: KF Rabies Vaccine (Rabies Vaccine (Rabavert) 2.5 Units Syringe) 2.5 units IM .ONCE ONE Stop: 06/20/23 16:48 Last Admin: 06/20/23 17:10 Dose: Not Given Documented By: KF Vital Signs Vital signs: Vital Signs - 8 hr 06/20/23 15:58 Temperature 98.4 F Pulse Rate 80 Respiratory Rate 20 Blood Pressure 117/78 Pulse Oximetry 98 Oxygen Delivery Method Room Air MDM - Animal Bite <Piotr Duke PA-C - Last Filed: 06/20/23 17:43> MDM Narrative Medical decision making narrative: 38-year-old female with no reported past medical history presents to the ED with her 2 children for rabies PEP due to possible bat exposure. Given that patient and her children were sleeping in the room with the bat was found, there is a potential for rabies exposure. Patient does qualify for a PEP per [facility] guidelines. Ordered rabies HRIG, 1st dose of rabies vaccine. While patient was awaiting the medications, she did hear back from the department of health that the bat tested negative. This therefore negates the need for the medications at this time. Discussed with patient. ED return precautions were also discussed with patient. She verbalized understanding. Medical records reviewed: Yes Discharge Plan Departure Patient Disposition: Home Clinical Impression: Exposure to bat without known bite Activity Restrictions/Additional Instructions: You were evaluated in the ED today for possible exposure to a bat and evaluated for the risk of lui rabies. You were in the ED, you did hear back from the public Health Department stating that the bat had tested negative, which effectively negates the need for any intervention at this point. Please return to the ED if you note any new symptoms. Prescriptions: No Action drospirenone-ethinyl estradiol 3-0.02 mg tablet See Rx Instructions .ROUTE .COMPLEX Qty: 112 3RF Dose Instruction: TAKE 1 ACTIVE TABLET BY MOUTH DAILY FOR 21 DAYS THEN START A NEW PACK FOR PELVIC PAIN Rx Instructions: TAKE 1 ACTIVE TABLET BY MOUTH DAILY FOR 21 DAYS THEN START A NEW PACK FOR PELVIC PAIN L norgest/e.estradiol-e.estrad [Ashlyna] 0.15 mg-30 mcg (84)/10 mcg (7) tablets,dose pack,3 month 1 tab PO DAILY Qty: 91 3RF Rx Instructions: Take once daily at same time every day methylprednisolone [Medrol (Stef)] 4 mg tablets,dose pack 4 mg PO DAILY Qty: 21 0RF ketorolac 10 mg tablet 10 mg PO Q8H PRN (Reason: pain) Qty: 20 0RF Rx Instructions: Please take with food and water methocarbamol 500 mg tablet 500 mg PO TID PRN (Reason: back pain) Qty: 20 0RF lidocaine 5 % adhesive patch,medicated 1 patch topical DAILY PRN (Reason: back pain) Qty: 30 0RF Rx Instructions: leave on most painful area for up to 12 hrs Referrals: Krystle Bowens MD [Primary Care Provider] - Stand Alone Forms: Patient Portal/API ED Sign-out <Ale Romero DO - Last Filed: 06/24/23 00:54> Cosign ED Attending Derrekature Attestation: I was immediately available in the department for consultation. Documentation has been reviewed.
== END 2023-06-20 17:33 | disposition home or self-care (01) ==
PROVIDERS: Emergency Provider Student in an Organized Health Care Education/Training Program; PCP Family Medicine
DX: Z20.3 Contact with and (suspected) exposure to rabies (principal)
CPT/HCPCS: 99281

== ENCOUNTER 2024-01-10 15:23 | Emergency (ER) | payer OTHER, SELFPAY ==
[2024-01-10 15:43] VITALS: BP 131/74; PULSE 68; O2SAT 100
[2024-01-10 15:52] VITALS: BP 131/74; PULSE 69; RESP 18; TEMP 36.6; O2SAT 100; BMI 20.5
--- NOTE | 2024-01-10 16:05 | ED_ITS ---
HPI - Anxiety <Jacinta Vargas PA-C - Last Filed: 01/10/24 17:39> General Chief Complaint: Anxiety Stated Complaint: Anxiety Time Seen by Provider: 01/10/24 16:02 Source: patient Mode of arrival: Ambulatory History of Present Illness HPI narrative: 38-year-old female presents today for worsening anxiety. She states she has had some racing thoughts, heavily distracted, she did have an episode where she was breathing more rapidly becoming tearful and this general feeling of ?pit in her stomach. ?. She is denying any chest pain, no history of any SI or HI and no current thoughts for either. 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 She did have back surgery in December of 2022 L5- S1 microdiskectomy and laminectomy and has been doing much better thus far continue PT every 3 weeks but still has chronic pain in this area which she manages with Tylenol and ibuprofen daily 1200 mg in divided doses. She drinks no alcohol she has not a smoker she is currently in a good relationship with her who is here with her, parents 2 kids ages 9 and 7. No unintentional weight loss or weight gain. She is never tried any long-term anti-anxiety or antidepressant. She was seeing Fanny Morris as a counselor but was unable to get a hold of her today. [place] P[place] is at the [place] and she has a good relationship with this doctor. Last menstrual period is January 09, 2024, history of premenstrual dysphoric disorder and pain associated with these periods. She has not taking any oral contraceptives anymore. She wanted me to know that at 1 point she was on gabapentin for her back pain but this ?made her crazy? and she had severe side effects making all of her anxiety and depression worse. She has no longer taking this. All other systems are reviewed and are negative. Related Data Previous Rx's Medication Instructions Recorded hydroxyzine HCl 50 mg tablet 50 mg PO QID #30 tabs 01/10/24 Allergies Allergy/AdvReac Type Severity Reaction Status Date / Time pseudoephedrine Allergy Unknown Verified 10/01/23 07:16 [PSEUDOEPHEDRINE] duratuss Allergy Unknown Hives Uncoded 10/01/23 07:16 Review of Systems <Jacinta Vargas PA-C - Last Filed: 01/10/24 17:39> Review of Systems Narrative: All other systems reviewed and are negative. Patient History <Jacinta Vargas PA-C - Last Filed: 01/10/24 17:39> Medical History Leg laceration Bronchitis Asthma Painful menstrual periods (~2018) Abnormal Pap smear of cervix (~2014) GERD (gastroesophageal reflux disease) Feeling of incomplete bladder emptying PMDD (premenstrual dysphoric disorder) Pelvic pain Urinary frequency Vaginal delivery Primary dysmenorrhea Family History Father Kidney disease Social History Smoking Status: Never smoker Smoking Status: Never smoker alcohol intake frequency: holidays/special occasions only Substance Use Type: does not use Exam <Jacinta Vargas PA-C - Last Filed: 01/10/24 17:39> Initial Vital Signs Initial Vital Signs: Vital Signs Pulse Rate 68 01/10/24 15:43 Blood Pressure 131/74 01/10/24 15:43 Pulse Oximetry 100 01/10/24 15:43 Vital signs reviewed and are normal. Const Other: Smiling, good eye contact, well kempt, no distress. [facility] Head: normal to inspection, normocephalic and atraumatic Mouth: oral mucosae normal Teeth and gingiva: dentition normal and gingiva normal Eyes General: Yes appearance normal, both eyes and all related structures Eyelids: eyelids normal Sclera: sclerae normal Pupils: PERRL Neck Other: Full active range of motion to the neck, no thyromegaly. Resp Other: Clear to auscultation throughout, no wheezes rales or rhonchi. Cardio Other: Regular rate and rhythm, no murmur rub or gallop appreciated, no tachycardia. Psych Other: Well dressed, alert and oriented x4, smiling at times, good eye contact, no hesitation with questioning. Tearful at times but not actively crying. PHQ-9 performed scoring a 15 which is moderately to severe depression, vandana 7 performed showing a score of 18 severe anxiety. <Ale Romero DO - Last Filed: 01/11/24 07:38> Initial Vital Signs Initial Vital Signs: Vital Signs Pulse Rate 68 01/10/24 15:43 Blood Pressure 131/74 01/10/24 15:43 Pulse Oximetry 100 01/10/24 15:43 Course <Jacinta Vargas PA-C - Last Filed: 01/10/24 17:39> Course Course Narrative: Consulted PROFESSIONAL FEE CODER, she will provide her resources other than her current counselor, trial of hydroxyzine 50 mg p.o.. Orders Ordered: Discontinued Medications Hydroxyzine HCl (Hydroxyzine Hcl 25 Mg Tablet) 50 mg PO NOW ONE Stop: 01/10/24 16:32 Last Admin: 01/10/24 17:01 Dose: 50 mg Documented By: GRAHAM Reevaluation(s) Reevaluation #1: Re-evaluated after 1 dose of hydroxyzine 50 mg and overall she feels a little bit better. Consultations Consultation #1: propeller layout worker met with her several times during her course here offering her additional resources to her current care team. Vital Signs Vital signs: Vital Signs - 8 hr 01/10/24 15:52 Temperature 97.8 F Pulse Rate 69 Respiratory Rate 18 Blood Pressure 131/74 Pulse Oximetry 100 Oxygen Delivery Method Room Air <Ale Romero DO - Last Filed: 01/11/24 07:38> Orders Ordered: Discontinued Medications Hydroxyzine HCl (Hydroxyzine Hcl 25 Mg Tablet) 50 mg PO NOW ONE Stop: 01/10/24 16:32 Last Admin: 01/10/24 17:01 Dose: 50 mg Documented By: MPO Vital Signs Vital signs: Vital Signs - 8 hr 01/10/24 15:52 Temperature 97.8 F Pulse Rate 69 Respiratory Rate 18 Blood Pressure 131/74 Pulse Oximetry 100 Oxygen Delivery Method Room Air MDM - Anxiety <Jacinta Vargas PA-C - Last Filed: 01/10/24 17:39> Medical Records Attestation: I reviewed the patient's medical records. MDM Narrative Medical decision making narrative: Anxiety and depression based on her PHQ-9 and vandana 7, no SI or HI, she has good support at home as well as her PCP at the [place]. A trial of hydroxyzine 50 mg given in-house. No adverse reactions, overall slightly improved. We will send her home with a prescription of additional hydroxyzine, I have asked her to contact [facility] to schedule follow up, we discussed potential use of a long-term antianxiety antidepressant such as sertraline or other SSRI. I did advise I will be at the walk-in clinic on Saturday as well as Saturday if she would like to call me or have a follow-up in person visit. Red flag warning signs are reviewed in detail. Although her vandana and PHQ-9 showed moderate to severe symptoms she has no SI or HI. She has good support at home with her and children, as well as her medical home at the [place]. I have asked her to come see me at the [facility] I will be there this Saturday and Saturday if she would like an in-person follow-up or simply a phone call. Our medical information specialist also gave her additional resources in addition to her current care team. Discharge Plan Departure Patient Disposition: Home Clinical Impression: Anxiety and depression Instructions: DI for Anxiety -- Adult Activity Restrictions/Additional Instructions: Please contact your doctor at the [place] for follow-up. You may wish to consider a long-term antianxiety medication such as sertraline or other SSRI. I have prescribed additional hydroxyzine which can be taken up to 4 times daily. I will be at the [facility] on Saturday from - as well as Saturday from - if you would like to follow up in person or merely a phone call. Our medical information specialist has also given you some additional resources. Please try to contact Ms. Morris per follow up as well. There also telemedicine options. If you have any new symptoms or worsening symptoms or worrisome symptoms please do not hesitate to return to the emergency department or call 911. I wish you the best of luck it was truly nice to meet you and your . Prescriptions: New hydroxyzine HCl 50 mg tablet 50 mg PO QID Qty: 30 0RF Referrals: Krystle Bowens MD [Primary Care Provider] - Stand Alone Forms: Patient Portal/API ED Sign-out <Ale Romero DO - Last Filed: 01/11/24 07:38> Cosign ED Attending Cosignature Attestation: I was available for consultation.
[2024-01-10] MEDS: hydrOXYzine HCL 25 MG TABLET 50 MG PO (17:01)
[2024-01-10 17:59] VITALS: BP 131/75; PULSE 72; RESP 18; TEMP 36.4; O2SAT 98
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
== END 2024-01-10 18:01 | disposition home or self-care (01) ==
PROVIDERS: Emergency Provider Physician Assistant Medical; PCP Family Medicine
DX: F41.9 Anxiety disorder, unspecified (principal); F32.A Depression, unspecified
CPT/HCPCS: 99283; A9270

== ENCOUNTER → 2024-12-17 14:58 | Outpatient (CLI) | payer OTHER, SELFPAY ==
--- NOTE | 2024-12-17 15:00 | DI.MG.S_ITS ---
MM screening mammo BI: 12/17/2024. BI-RADS: 1 CLINICAL: 39-year old female for bilateral screening mammogram. Tyrer-Cuzick lifetime risk of 9.7%. No personal or first-degree family history of breast cancer. PRIOR EXAMS: None. This is a baseline mammogram. MAMMOGRAPHY TECHNIQUE: 2D and 3D (tomosynthesis) digital mammographic views obtained, with additional images as needed for full coverage. Current study was also evaluated with a Computer Aided Detection (CAD) system. DENSITY C. The breasts are heterogeneously dense, which may obscure small masses. MAMMOGRAPHY FINDINGS Bilateral: No suspicious mass, asymmetry, microcalcification, or other abnormality seen. IMPRESSION: * No evidence of malignancy. RECOMMENDATIONS Bilateral * Annual screening mammography. OVERALL ASSESSMENT CATEGORY BI-RADS-1: Negative. The [employer] recommends annual screening mammography beginning at age 40 for women with average risk of breast cancer. ELECTRONICALLY SIGNED: Jet Nogueira M.D. on 12/18/2024 at 08:41:08 AM PT Interpreting Station ID: [id number]
== END ==
PROVIDERS: PCP Family Medicine; Referring Provider Family Medicine; Visit Provider Family Medicine
DX: Z12.31 Encounter for screening mammogram for malignant neoplasm of breast (principal); R92.333 Mammographic heterogeneous density, bilateral breasts
CPT/HCPCS: 77063; 77067

== ENCOUNTER 2025-07-07 21:36 | Emergency (ER) | payer BC, SELFPAY ==
[2025-07-07] VITALS (9 sets, daily range): BP systolic 106–135; BP diastolic 59–68; PULSE 55–75; RESP 14–28; TEMP 36.7; O2SAT 96–98; BMI 20.5
--- NOTE | 2025-07-07 21:48 | DI.CT.S_ITS ---
P the ROCEDURE: CT HEAD/BRAIN WO CON INDICATIONS: syncope TECHNIQUE: Noncontrast 4.5 mm thick angled axial sections acquired from the foramen magnum to the vertex, with coronal and sagittal reformats. For radiation dose reduction, the following was used: automated exposure control, adjustment of mA and/or kV according to patient size. COMPARISON: None. FINDINGS: Image quality: Diagnostic. CSF spaces: Basal cisterns are patent. No extra-axial fluid collections. Ventricles are normal in size and shape. Brain: No midline shift. No intracranial mass effect or hemorrhage. Morris- white matter interface is normal. Skull and face: Calvarium and visualized facial bones are intact, without suspicious lesions. Sinuses: Visualized sinuses and mastoids are clear. IMPRESSION: CT head without acute intracranial abnormalities. No mass or mass effect visualized. Dictated by: Amos Dinh M.D. on 07/07/2025 at 22:42 Approved by: Amos Dinh M.D. on 07/07/2025 at 22:43
--- NOTE | 2025-07-07 21:48 | DI.RAD.S_ITS ---
PROCEDURE: XR CHEST 1V INDICATIONS: aspiration TECHNIQUE: One view of the chest was acquired. COMPARISON: None. FINDINGS: Surgical changes and devices: None. Lungs and pleura: Lungs are clear. No pleural effusions or pneumothorax. Mediastinum: Mediastinal contours appear normal. Heart size is normal. Bones and chest wall: No suspicious bony lesions. Overlying soft tissues appear unremarkable. IMPRESSION: No acute cardiopulmonary abnormalities or focal consolidation. Dictated by: Amos Dinh M.D. on 07/07/2025 at 22:39 Approved by: Amos Dinh M.D. on 07/07/2025 at 22:39
--- NOTE | 2025-07-07 22:05 | EKG_ITS ---
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
--- NOTE | 2025-07-07 22:09 | ED.SYNCOPE ---
HPI - Syncope General Chief Complaint: Syncope Stated Complaint: Syncope(while eating/spit up) Time Seen by Provider: 07/07/25 21:48 Source: family Mode of arrival: Ambulatory Limitations: no limitations History of Present Illness HPI narrative: Patient is a healthy 40-year-old female history of anxiety depression presenting today with a syncopal episode. Has been reports that they were standing at the [place] in the kitchen eating she was eating her wrap she poured herself some apple cider he was standing at the other end of [place] heard her gas and then saw her go down. He was able to grab her he did do the Heimlich twice got some food up she passed out briefly for about 5 seconds. She did hit her head she has no numbness tingling or weakness. She does not recall the event. No reports of convulsing no urinary incontinence did not injure tongue. She has never passed out before. She did not make the universal choking signed but has been did hear a noise. She is now feeling nauseous and has a mild headache. She denies any chest pain palpitations or other symptoms. Related Data Home Medications ?Medication ?Instructions ?Recorded ?Confirmed sertraline 100 mg tablet (Zoloft) 50 mg PO DAILY 12/25/24 12/25/24 Previous Rx's ?Medication ?Instructions ?Recorded hydroxyzine HCl 50 mg tablet 50 mg PO QID #30 tabs 01/10/24 Allergies Allergy/AdvReac Type Severity Reaction Status Date / Time pseudoephedrine Allergy Unknown Verified 07/07/25 23:12 (PSEUDOEPHEDRINE) duratuss Allergy Unknown Hives Uncoded 07/07/25 23:12 Patient History Medical History Leg laceration Bronchitis Asthma Painful menstrual periods (~2018) Abnormal Pap smear of cervix (~2014) GERD (gastroesophageal reflux disease) Feeling of incomplete bladder emptying PMDD (premenstrual dysphoric disorder) Pelvic pain Urinary frequency Vaginal delivery Primary dysmenorrhea Family History Father Kidney disease Social History Smoking Status: Never smoker Smoking Status: Never smoker alcohol intake frequency: holidays/special occasions only Exam Initial Vital Signs Initial Vital Signs: Vital Signs Pulse Rate 63 07/07/25 21:42 Pulse Oximetry 98 07/07/25 21:42 GENERAL: Well-appearing, well-nourished and in no acute distress. HEENT: Head atraumatic,EOMI, pupils reactive, face symmetric, moist mucous membranes NECK: No vertebral tenderness no step-off full range of motion CARDIOVASCULAR: Regular rate and rhythm without murmurs, rubs or gallops. RESPIRATORY: Breath sounds equal bilaterally, no wheezes rales or rhonchi. ABDOMEN: Soft, nontender. Normoactive bowel sounds all 4 quadrants. No guarding or rebound. EXTREMITIES: Normal range of motion, no clubbing or edema. Neurovascularly intact NEUROLOGICAL: Alert and oriented x4.Normal gait and speech. Cranial nerves II through XII grossly intact. Good [id number], good [id number], strength equal bilaterally, no dysarthria or aphasia, sensation in tact to soft touch bilaterally, no visual changes, no facial droop SKIN: Warm, dry, no laceration, no petechiae, no rashes or lesions. Course Orders Ordered: ED Orders 07/07/25 21:20 Ictotest Urine Stat Urine Culture Stat Urine Microscopic Stat 07/07/25 21:48 CT head/brain wo con Stat XR chest 1V Stat EKG-12 Lead Stat 07/07/25 22:00 Complete Blood Count AUTO DIFF Stat Comprehensive Metabolic Panel Stat D Dimer Stat Lipase Stat Magnesium Stat NT-proBNP (BNP-Adult 18+) Stat Troponin I Stat Discontinued Medications Ondansetron HCl (Ondansetron 4 Mg/2 Ml Inj) 4 mg IV NOW ONE Stop: 07/07/25 22:09 Last Admin: 07/07/25 22:14 Dose: 4 mg Documented By: MANUEL Vital Signs Vital signs: Vital Signs - 8 hr 07/07/25 21:42 07/07/25 21:45 07/07/25 22:00 Temperature 98.1 F Pulse Rate 63 75 59 L Pulse Rate [Orthostatic Lying] Pulse Rate [Orthostatic Sitting] Pulse Rate [Orthostatic Standing] Respiratory Rate 18 17 Blood Pressure 135/68 Blood Pressure [Orthostatic Lying] Blood Pressure [Orthostatic Sitting] Blood Pressure [Orthostatic Standing] Pulse Oximetry 98 98 97 Oxygen Delivery Method Room Air 07/07/25 22:35 07/07/25 22:47 07/07/25 22:49 Temperature Pulse Rate 58 L Pulse Rate [Orthostatic Lying] 57 L Pulse Rate [Orthostatic Sitting] 64 Pulse Rate [Orthostatic Standing] 59 L Respiratory Rate 22 Blood Pressure 112/62 Blood Pressure [Orthostatic Lying] 112/62 Blood Pressure [Orthostatic Sitting] 113/62 Blood Pressure [Orthostatic Standing] 106/59 L Pulse Oximetry 97 Oxygen Delivery Method 07/07/25 22:49 07/07/25 22:51 07/07/25 22:51 Temperature Pulse Rate 56 L 60 Pulse Rate [Orthostatic Lying] Pulse Rate [Orthostatic Sitting] Pulse Rate [Orthostatic Standing] Respiratory Rate 18 14 Blood Pressure 113/62 Blood Pressure [Orthostatic Lying] Blood Pressure [Orthostatic Sitting] Blood Pressure [Orthostatic Standing] Pulse Oximetry 96 96 Oxygen Delivery Method 07/07/25 22:52 07/07/25 22:52 07/07/25 23:00 Temperature Pulse Rate 61 Pulse Rate [Orthostatic Lying] Pulse Rate [Orthostatic Sitting] Pulse Rate [Orthostatic Standing] Respiratory Rate 23 Blood Pressure 106/59 L 113/62 Blood Pressure [Orthostatic Lying] Blood Pressure [Orthostatic Sitting] Blood Pressure [Orthostatic Standing] Pulse Oximetry 97 Oxygen Delivery Method 07/07/25 23:00 Temperature Pulse Rate 55 L Pulse Rate [Orthostatic Lying] Pulse Rate [Orthostatic Sitting] Pulse Rate [Orthostatic Standing] Respiratory Rate 28 H Blood Pressure Blood Pressure [Orthostatic Lying] Blood Pressure [Orthostatic Sitting] Blood Pressure [Orthostatic Standing] Pulse Oximetry 97 Oxygen Delivery Method MDM - Syncope Lab Data 07/07/25 22:00 07/07/25 22:00 Labs: Lab Results 07/07/25 07/07/25 Range/Units 21:20 22:00 WBC 6.2 (4.5-11.0) X10^3/uL RBC 4.44 (4.0-5.2) X10^6/uL Hgb 13.6 (12.0-16.0) g/dL Hct 39.1 (36-46) % MCV 88.0 (80-100) fL MCH 30.6 (26-34) PG MCHC 34.8 (30-36) % RDW 12.3 (11.6-14.8) % Plt Count 262 (150-400) X10^3/uL Neut % (Auto) 51.2 (50-75) % Lymph % (Auto) 39.8 (25-40) % Whitfield % (Auto) 7.8 (3-14) % Eos % (Auto) 0.8 L (2-4) % Baso % (Auto) 0.4 (0-2) % Neut # (Auto) 3200 (8806-6862) /uL Lymph # (Auto) 2500 (8886-9709) /uL [place]field # (Auto) 500 (0-900) /uL Eos # (Auto) 0 (0-450) /uL Baso # (Auto) 0 (0-100) /uL D-Dimer < 215 (<500) ng/ml Sodium 138 (137-145) mmol/L Potassium 3.5 (3.4-5.1) mmol/L Chloride 106 (98-107) mmol/L Carbon Dioxide 22 (22-32) mmol/L BUN 19 H (7-17) mg/dL Creatinine 0.81 (0.52-1.04) mg/dL Estimated GFR > 60 (>60) mL/min BUN/Creatinine Ratio 23.5 H (6-22) Glucose 113 H (70-99) mg/dL Calcium 9.1 (8.4-10.2) mg/dL Magnesium 1.9 (1.6-2.3) mg/dL Total Bilirubin 0.2 (0.2-1.3) mg/dL AST 32 (14-36) IU/L ALT 21 (<35) IU/L Alkaline Phosphatase 60 (38-126) U/L Troponin I < 0.012 (0.01-0.034) ng/mL NT-Pro-B Natriuret Pep < 20 (<125) pg/mL Total Protein 7.5 (6.3-8.2) g/dL Albumin 4.7 (3.5-5.0) g/dL Globulin 2.8 (1.7-4.1) g/dL Albumin/Globulin Ratio 1.7 (1.0-2.8) Lipase 121 (23-300) U/L Ur Bilirubin Confirm Negative (Negative) Urine RBC 0-1/hpf (0-5/HPF) Urine WBC None seen (0-5/HPF) Ur Squamous Epith Cells 1-5 /hpf (0-5/HPF) Calcium Oxalate Crystal Many H Urine Bacteria None seen (None) Urine Mucus 1+ H (Negative) Ur Culture Indicated? Vol Urine Centrifuged 10ml (spun) Point of Care Testing Test Results Negative Urine Dip Bedside Urine Glucose Negative Bedside Urine Bilirubin + 1 Bedside Urine Ketone - Negative Urine Specific [place] 1.030 Bedside Urine Occult Blood - Negative Bedside Urine pH 6.0 Bedside Urine Protein +/- 15 Bedside Urine Urobilinogen +/- 1mg Bedside Urine Nitrite - Negative Bedside Urine Leukocytes - Negative Esterase Imaging Data Chest x-ray: Radiologist's Impression: PROCEDURE: XR CHEST 1V INDICATIONS: aspiration TECHNIQUE: One view of the chest was acquired. COMPARISON: None. FINDINGS: Surgical changes and devices: None. Lungs and pleura: Lungs are clear. No pleural effusions or pneumothorax. Mediastinum: Mediastinal contours appear normal. Heart size is normal. Bones and chest wall: No suspicious bony lesions. Overlying soft tissues appear unremarkable. IMPRESSION: No acute cardiopulmonary abnormalities or focal consolidation. Dictated by: Amos Dinh M.D. on 07/07/2025 at 22:3 CT scan - head: Radiologist's Impression: P the ROCEDURE: CT HEAD/BRAIN WO CON INDICATIONS: syncope TECHNIQUE: Noncontrast 4.5 mm thick angled axial sections acquired from the foramen magnum to the vertex, with coronal and sagittal reformats. For radiation dose reduction, the following was used: automated exposure control, adjustment of mA and/or kV according to patient size. COMPARISON: None. FINDINGS: Image quality: Diagnostic. CSF spaces: Basal cisterns are patent. No extra-axial fluid collections. Ventricles are normal in size and shape. Brain: No midline shift. No intracranial mass effect or hemorrhage. Morris-white matter interface is normal. Skull and face: Calvarium and visualized facial bones are intact, without suspicious lesions. Sinuses: Visualized sinuses and mastoids are clear. IMPRESSION: CT head without acute intracranial abnormalities. No mass or mass effect visualized. Dictated by: Amos Dinh M.D. on 07/07/2025 at 22:42 Approved by: Amos Dinh M.D. on 07/07/2025 at 22:43 ECG Data Attestation: I personally reviewed and interpreted this ECG as follows: Interpretation: Normal sinus rhythm rate 55 UT interval 140 QRS [address] changes or T-wave inversion MDM Narrative Medical decision making narrative: PIERRE CC: Syncope Complicating co-morbidities: PTSD anxiety Data collected from: Has been and patient Medical records reviewed: Minimal records has been to the ED a couple of time Differential considered: Cardiogenic neurogenic vasovagal, choking, anemia electrolyte abnormality, pulmonary embolism Exam documented above, pertinent findings include: Alert very well-appearing 40-year-old female no evidence of trauma GCS of 15 Lab Test results independently reviewed as above. Pertinent findings: CBC no leukocytosis no anemia CMP no significant electrolyte abnormality BUN is 19 creatinine 0.8 glucose 113 Troponin negative, BNP negative D-dimer negative Bilirubin liver enzymes within normal limits Urinalysis negative for and UTI Independently reviewed EKG as above Sinus rhythm no abnormality or arrhythmia Imaging studies independently reviewed: Head CT no intracranial process Chest x-ray no acute cardiopulmonary process Consultations: [ ] Treatments: Zofran Re-evaluations: Patient has started feeling nauseous no significant vomiting. Discussion: Patient is a healthy 40-year-old female presenting today with a syncopal episode. Clear if she was actually choking. She did make it has been did go and grab her and she did get some food. But she did not have any cyanosis or turn blue. No evidence a seizure, no urinary incontinence or tongue injury she had no convulsions. She quickly came around no significant postictal period. Blood work is overall reassuring she has no evidence of anemia or infection no electrolyte abnormality or signs of dehydration. Troponin is negative. D-dimer is negative unlikely to be a pulmonary embolism. She was complaining of a headache. Head CT does not show any evidence of intracranial hemorrhage chest x-ray is negative, no evidence of aspiration. At this unclear what caused her event but supportive measures to be taken strict return precautions. Discharge Plan Departure Patient Disposition: Home Clinical Impression: Syncope Instructions: DI for Syncope in Adults (Fainting) Activity Restrictions/Additional Instructions: *You have been diagnosed with syncope *What to do: At this time it is unclear exactly what happened to tonight. Blood work is overall reassuring your vitals are also normal. At this time I recommend that you continue eat and drink normally *Continue to take medications as directed *Follow up with your primary care provider in 2-3 days or call [phone] *Return to ER if you should have recurrent episode of passing out, increasing fever shortness of breath cough or any new, worsening or concerning symptoms Prescriptions: No Action sertraline [Zoloft] 100 mg tablet 50 mg PO DAILY hydroxyzine HCl 50 mg tablet 50 mg PO QID Qty: 30 0RF Referrals: Krystle Bowens MD [Primary Care Provider, Family Practice] Stand Alone Forms: Patient Portal/API
[2025-07-07 22:13] LABS: Add Manual Diff / Slide Review NO; Hematocrit 39.1 % (36-46); Hemoglobin 13.6 g/dL (12.0-16.0); Lymphocytes Absolute Auto 2500 /uL (1100-4500); Mean Corpuscular HGB Conc 34.8 % (30-36); Mean Corpuscular Hemoglobin 30.6 PG (26-34); Mean Corpuscular Volume 88.0 fL (80-100); Platelet Count 262 X10^3/uL (150-400)
[2025-07-07] MEDS: ONDANSETRON 4 MG/2 ML INJ IV (22:14)
[2025-07-07 22:22] LABS: Alanine Aminotransferase 21 IU/L (<35); Albumin 4.7 g/dL (3.5-5.0); Albumin Globulin Ratio 1.7 (1.0-2.8); Alkaline Phosphatase 60 U/L (38-126); Blood Urea Nitrogen 19 mg/dL (7-17); Calcium 9.1 mg/dL (8.4-10.2); Carbon Dioxide 22 mmol/L (22-32); Chloride 106 mmol/L (98-107); Estimated Glomerular Filt Rate > 60 mL/min (>60); Globulin 2.8 g/dL (1.7-4.1); Glucose 113 mg/dL (70-99); HEMOLYSIS < 15 (0-50); Lipase 121 U/L (23-300); Magnesium 1.9 mg/dL (1.6-2.3); Potassium 3.5 mmol/L (3.4-5.1); Sodium 138 mmol/L (137-145); Total Protein 7.5 g/dL (6.3-8.2)
[2025-07-07 22:34] LABS: NT-proBNP (BNP-Adult 18+) < 20 pg/mL (<125); Troponin I < 0.012 ng/mL (0.01-0.034)
[2025-07-07 22:41] LABS: Ictotest Urine Negative (Negative)
== END 2025-07-07 23:15 | disposition home or self-care (01) ==
PROVIDERS: Emergency Provider Emergency Medicine; PCP Family Medicine
DX: R55 Syncope and collapse (principal)
CPT/HCPCS: 36415; 70450; 71045; 80053; 81003; 81015; 81025; 83690; 83735; 83880; 84484; 85025; 85379; 87086; 93005; 96374; 99284; J2405